=== PATIENT | female | born 1985 | race American Indian/Alaskan Native ===

== ENCOUNTER → 2022-06-26 | Emergency (ER) | payer SELFPAY ==
[~2022-06-26] MED LIST: HYDROcodone/ACETAMINOPHEN 5-325 MG TAB PO STA
[2022-06-26 18:20] VITALS: BP 137/96
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
--- NOTE | 2022-06-26 22:23 | XRay Report ---
CERVICAL SPINE for VIEWS INDICATION / CLINICAL INFORMATION: neck pain. COMPARISON: None available. FINDINGS: VERTEBRAE: No acute fracture. No significant malalignment. DISC SPACES / FACET JOINTS:No significant abnormality. PARASPINAL SOFT TISSUES:No significant abnormality. ADDITIONAL FINDINGS: None. Signer Name: Daniel Stephens DO Signed: 06/26/2022 10:19 PM Workstation Name: [id number]
== END | disposition home or self-care (01) ==
LOC: ED 18:06
DX: S16.1XXA Strain of muscle, fascia and tendon at neck level, initial encounter (principal); X58.XXXA Exposure to other specified factors, initial encounter; Y93.89 Activity, other specified; Y92.89 Other specified places as the place of occurrence of the external cause; Y99.8 Other external cause status
CPT/HCPCS: 72040; 99283